=== PATIENT | female | born 1985 | race Caucasian/White ===

== ENCOUNTER 2017-08-29 22:28 | Emergency (ER) | payer BC ==
[~2017-08-29] VITALS: Ht 154.9 cm; Wt 90.7 kg
[2017-08-29 22:32] VITALS: BP 147/87
[2017-08-29] MEDS ORDERED: LORAZEPAM 1 MG TABLET ONE (23:28)
[2017-08-29] MEDS ORDERED: LORAZEPAM 1 MG TABLET PO ONE (23:30)
== END 2017-08-29 23:35 | disposition home or self-care (01) ==
LOC: ER 22:38
DX: F41.9 Anxiety disorder, unspecified (principal); G47.00 Insomnia, unspecified
CPT/HCPCS: 99284; A4606; Z7610